=== PATIENT | female | born 1980 | race Two or more races ===

== ENCOUNTER → 2025-03-20 | Outpatient (CLI) | payer BC, SELFPAY ==
--- NOTE | 2025-03-20 12:20 | XR_ITS ---
Examination: Bone densitometry Date and time of exam:March 20, 2025 1239 hours INDICATIONS: Diagnosis rheumatoid arthritis, family history mother osteoporosis, knee fracture age 39 Technique: Lumbar spine and hip total bone mineralization values of an calculated. Peak reference and age match control results have been displayed. Findings: Lumbar spine total bone mineralization is1.059 gm/cm2. This is 0.1 standard deviations above peak reference. This is 0.5 standard deviations above age-matched controls. Hip total bone mineralization is 0.989 gm/cm2 This is 0.2 standard deviations above peak reference. This is 2 standard deviations above age-matched controls Impression: There is normal mineralization based on lumbar spine measurements. There is normal mineralization based on hip measurements
== END | disposition home or self-care (01) ==
LOC: CDIM 12:19
PROVIDERS: PCP Internal Medicine Rheumatology; Referring Provider Internal Medicine Rheumatology; Visit Provider Internal Medicine Rheumatology
DX: M47.819 Spondylosis without myelopathy or radiculopathy, site unspecified (principal); Z79.899 Other long term (current) drug therapy
CPT/HCPCS: 77080

== ENCOUNTER → 2025-04-03 | Outpatient (CLI) | payer BC, SELFPAY ==
--- NOTE | 2025-04-03 10:30 | XR_ITS ---
Examination: Screening digital mammography, bilateral Computer aided detection 3-D breast Tomosynthesis, bilateral Date and time of exam: April 03, 2025 1010 hours Comparison January 08, 2024 Indication: Screening Technique: Nonmagnified MLO, CC views of the breasts to been obtained, reconstructed from 3-D Tomosynthesis images. R2 computer aided detection program utilized for evaluation of suspicious masses and/or abnormal calcifications. 3-D Tomosynthesis images obtained. Findings: Scattered areas of fibroglandular density. Benign calcifications. No suspicious masses Impression: BI-RADS category II: Benign Findings. Recommend 1 year follow-up mammogram.
== END | disposition home or self-care (01) ==
LOC: CDIM 09:57
PROVIDERS: Referring Provider Nurse Practitioner Family; Visit Provider Nurse Practitioner Family
DX: Z12.31 Encounter for screening mammogram for malignant neoplasm of breast (principal); R92.323 Mammographic fibroglandular density, bilateral breasts; R92.1 Mammographic calcification found on diagnostic imaging of breast
CPT/HCPCS: 77063; 77067

== ENCOUNTER → 2025-05-19 | Outpatient (CLI) | payer BC, SELFPAY ==
--- NOTE | 2025-05-19 | XR_ITS ---
Examination: Toes, right foot 3 views fourth digit Technique: Toes AP oblique lateral 3 views, fourth digit Date and time of exam: May 19, 2025, 0732 hours INDICATIONS: Injury 4 days ago to the foot with fourth and fifth digit pain. FINDINGS: No acute fracture. No dislocation No foreign body IMPRESSION: No acute fracture.
== END | disposition home or self-care (01) ==
LOC: CDIM 07:01
PROVIDERS: PCP Family Medicine; Referring Provider Nurse Practitioner Family; Visit Provider Nurse Practitioner Family
DX: S99.921A Unspecified injury of right foot, initial encounter (principal); X58.XXXA Exposure to other specified factors, initial encounter
CPT/HCPCS: 73660